=== PATIENT | male | born 1930 | race Caucasian/White ===

== ENCOUNTER 2018-09-21 08:43 | Inpatient (IN) | payer MEDICARE, MEDICAID ==
[~2018-09-21] VITALS: Ht 165.1 cm; Wt 77.6 kg
[2018-09-21] MEDS ORDERED: SODIUM CHLORIDE 0.9% 1,000 ML IV ONE (10:19)
[2018-09-21 12:20] LABS: BASOPHILS % 0.7 % (0.0-2.0); EOSINOPHILS % 0.9 % (0.0-5.0); HEMATOCRIT. 38.4 % (42.0-52.0); HEMOGLOBIN. 12.9 g/dL (14.0-18.0); LYMPHOCYTES % 18.7 % (20.0-50.0); MEAN CORPUSCULAR HEMOGLOBIN 29.9 pg (28.0-32.0); MEAN CORPUSCULAR VOLUME 88.7 fL (80.0-94.0); MEAN PLATELET VOLUME 8.6 fl (7.4-10.4); MONOCYTES % 7.8 % (2.0-8.0); NEUTROPHILS % 71.9 % (40.0-76.0); PLATELET 198 x1000/uL (130-400); RED BLOOD CELL COUNT 4.33 mill/uL (4.7-6.1); RED CELL DISTRIBUTION WIDTH 14.2 % (11.6-14.6)
[2018-09-21 12:25] LABS: CHLORIDE 110 mEq/L (98-107)
[2018-09-21 12:29] LABS: ETHANOL BLOOD < 10 mg/dL; PARTIAL THROMBOPLASTIN TIME 27.8 sec (23.4-31.0); PROTHROMBIN TIME 10.3 sec (9.6-11.0)
[2018-09-21 14:55] LABS: CLARITY URINE CLEAR (CLEAR); COLOR URINE YELLOW (YELLOW); KETONES URINE NEGATIVE (NEGATIVE); LEUKOCYTE ESTERASE URINE NEGATIVE (NEGATIVE); NITRITE URINE NEGATIVE (NEGATIVE); OCCULT BLOOD URINE NEGATIVE (NEGATIVE); PROTEIN URINE NEGATIVE (NEGATIVE); SPECIFIC GRAVITY URINE 1.011 (1.005-1.030); UROBILINOGEN URINE 0.2 E.U./dL (0.2-1.0)
[2018-09-21 15:06] LABS: METHADONE URINE SCREEN NEGATIVE (NEGATIVE); OPIATES URINE SCREEN NEGATIVE (NEGATIVE)
[2018-09-21 15:07] LABS: *AMPHETAMINES SCREEN URINE NEGATIVE (NEGATIVE); *BARBITURATES SCREEN URINE NEGATIVE (NEGATIVE); *BENZODIAZEPINES SCREEN URINE NEGATIVE (NEGATIVE); *COCAINE SCREEN URINE NEGATIVE (NEGATIVE); CANNABINOID URINE SCREEN NEGATIVE (NEGATIVE); PHENCYCLIDINE URINE SCREEN NEGATIVE (NEGATIVE)
[2018-09-21 16:07] VITALS: BP 147/73
[2018-09-21 17:45] VITALS: BP 147/73
[2018-09-21] MEDS ORDERED: SODIUM CHLORIDE 0.9% 1,000 ML IV SCH (19:28)
[2018-09-21] MEDS ORDERED: LORAZEPAM 2MG/ML CPJ IV PRN (19:30)
[2018-09-21] MEDS ORDERED: MAGNESIUM/ALUMINUM HYDROXIDE/SIMETHICONE 30ML UDC PO PRN (19:30)
[2018-09-21] MEDS ORDERED: ONDANSETRON HCL 4MG/2ML INJ IV PRN (19:30)
[2018-09-21] MEDS ORDERED: HYDROCODONE/ACETAMINOPHEN 5/325MG TABLET PO PRN (19:30)
[2018-09-21 20:00] VITALS: BP 167/54
[2018-09-21] MEDS: CLONIDINE 0.1MG TABLET PO PRN (20:23)
[2018-09-21] MEDS: THIAMINE HCL 100MG TABLET PO SCH (20:24)
[2018-09-21] MEDS: ENOXAPARIN 40MG/0.4ML SYR SUBCUT SCH (20:24)
[2018-09-21 23:55] VITALS: BP 100/61
[2018-09-22 00:04] LABS: CREATINE KINASE MB FRACTION 2.3 ng/mL (0.5-3.6)
[2018-09-22 04:00] VITALS: BP_SYST 162; BP_SYST 167; BP_DIAS 78; BP_DIAS 84
[2018-09-22] MEDS: CLONIDINE 0.1MG TABLET PO PRN ×2 (05:12→21:07)
[2018-09-22 06:02] LABS: BASOPHILS % 0.7 % (0.0-2.0); EOSINOPHILS % 1.3 % (0.0-5.0); HEMATOCRIT. 38.3 % (42.0-52.0); HEMOGLOBIN. 13.3 g/dL (14.0-18.0); LYMPHOCYTES % 27.4 % (20.0-50.0); MEAN CORPUSCULAR HEMOGLOBIN 30.3 pg (28.0-32.0); MEAN CORPUSCULAR VOLUME 87.4 fL (80.0-94.0); MEAN PLATELET VOLUME 8.3 fl (7.4-10.4); MONOCYTES % 8.7 % (2.0-8.0); NEUTROPHILS % 61.9 % (40.0-76.0); PLATELET 218 x1000/uL (130-400); RED BLOOD CELL COUNT 4.38 mill/uL (4.7-6.1)
[2018-09-22 06:49] LABS: CHLORIDE 109 mEq/L (98-107)
[2018-09-22 07:15] LABS: PHOSPHORUS 2.6 mg/dL (2.5-4.9)
[2018-09-22 07:17] LABS: CREATINE KINASE 158 IU/L (39-308)
[2018-09-22 07:21] LABS: CREATINE KINASE MB FRACTION 2.7 ng/mL (0.5-3.6)
[2018-09-22 08:00] VITALS: BP 143/81
[2018-09-22] MEDS: THIAMINE HCL 100MG TABLET PO SCH (08:54)
[2018-09-22 12:00] VITALS: BP 160/70
[2018-09-22 16:00] VITALS: BP 150/62
[2018-09-22 18:30] LABS: T4 FREE 1.11 ng/dL (0.76-1.46)
[2018-09-22 18:46] LABS: FOLIC ACID (FOLATE) SERUM 19.9 ng/mL (>5.38)
[2018-09-22 20:00] VITALS: BP 171/75
[2018-09-22] MEDS: AMLODIPINE 5MG TABLET PO SCH (21:07)
[2018-09-22] MEDS: ENOXAPARIN 40MG/0.4ML SYR SUBCUT SCH (21:07)
[2018-09-23] VITALS: BP 138/71
[2018-09-23 04:00] VITALS: BP 144/74
[2018-09-23 08:00] VITALS: BP 137/75
[2018-09-23] MEDS: THIAMINE HCL 100MG TABLET PO SCH (08:10)
[2018-09-23] MEDS: AMLODIPINE 5MG TABLET PO SCH ×2 (08:11→20:29)
[2018-09-23 12:00] VITALS: BP 140/69
[2018-09-23] MEDS ORDERED: CYANOCOBALAMIN 1000MCG/ML VIAL IM SCH (12:00)
[2018-09-23 16:00] VITALS: BP 128/71
[2018-09-23] MEDS: CYANOCOBALAMIN 1000MCG/ML VIAL IM SCH (17:42)
[2018-09-23 20:00] VITALS: BP 150/76
[2018-09-23] MEDS: ENOXAPARIN 40MG/0.4ML SYR SUBCUT SCH (20:16)
[2018-09-24] VITALS (8 sets, daily range): BP systolic 113–149; BP diastolic 61–65
[2018-09-24 06:06] LABS: BASOPHILS % 0.5 % (0.0-2.0); EOSINOPHILS % 2.4 % (0.0-5.0); HEMATOCRIT. 40.9 % (42.0-52.0); HEMOGLOBIN. 14.3 g/dL (14.0-18.0); LYMPHOCYTES % 26.5 % (20.0-50.0); MEAN CORPUSCULAR HEMOGLOBIN 30.4 pg (28.0-32.0); MEAN PLATELET VOLUME 8.3 fl (7.4-10.4); MONOCYTES % 8.7 % (2.0-8.0); NEUTROPHILS % 61.9 % (40.0-76.0); PLATELET 235 x1000/uL (130-400); RED CELL DISTRIBUTION WIDTH 13.8 % (11.6-14.6)
[2018-09-24 06:44] LABS: CHLORIDE 107 mEq/L (98-107)
[2018-09-24] MEDS: THIAMINE HCL 100MG TABLET PO SCH (09:22)
[2018-09-24] MEDS: CYANOCOBALAMIN 1000MCG/ML VIAL IM SCH (09:22)
[2018-09-24] MEDS: AMLODIPINE 5MG TABLET PO SCH ×2 (09:22→20:42)
[2018-09-24] MEDS: ENOXAPARIN 40MG/0.4ML SYR SUBCUT SCH (20:43)
[2018-09-25] MEDS ORDERED: CALCIUM CARBONATE/VITAMIN D3 500MG TABLET PO SCH (09:00)
[2018-09-25] MEDS ORDERED: CALCITONIN,SALMON, 3.7 ML NASAL SPRAY ONENSTRL SCH (09:00)
[2018-09-25] MEDS ORDERED: ZOLP5TAB2 PO (16:32)
[2018-09-25] MEDS ORDERED: TRAM50TA3 PO (16:34)
[2018-09-25] MEDS ORDERED: MECL-109 PO (16:36)
[2018-09-25] MEDS ORDERED: LISI2.5T47 PO (16:37)
[2018-09-25] MEDS ORDERED: HYDR12.529 PO (16:37)
[2018-10-06] MEDS ORDERED: CYANOCOBALAMIN 1000MCG/ML VIAL IM SCH (09:00)
== END 2018-09-24 21:20 | disposition short-term general hospital (02) | DRG 91 ==
LOC: ER 08:43 → 7WST 12:57 → EDBEDREQ 12:58 → ENRESERV 14:24
PROVIDERS: ADMIT Internal Medicine Nephrology; ATTEND Internal Medicine Nephrology
DX: G92 Toxic encephalopathy (principal); G82.50 Quadriplegia, unspecified; R47.01 Aphasia; I11.9 Hypertensive heart disease without heart failure; R47.1 Dysarthria and anarthria; R13.10 Dysphagia, unspecified; R53.81 Other malaise; D64.9 Anemia, unspecified; G89.29 Other chronic pain; M48.02 Spinal stenosis, cervical region; M43.16 Spondylolisthesis, lumbar region; E53.8 Deficiency of other specified B group vitamins; M25.78 Osteophyte, vertebrae; M47.814 Spondylosis without myelopathy or radiculopathy, thoracic region; M48.061 Spinal stenosis, lumbar region without neurogenic claudication; Y93.01 Activity, walking, marching and hiking; R26.9 Unspecified abnormalities of gait and mobility; W18.39XA Other fall on same level, initial encounter; Y92.89 Other specified places as the place of occurrence of the external cause; Y99.8 Other external cause status; Z79.899 Other long term (current) drug therapy; Z87.81 Personal history of (healed) traumatic fracture
CPT/HCPCS: 36415; 70551; 71045; 72141; 72146; 72148; 80048; 80305; 80320; 82140; 82550; 82553; 82607; 82746; 83036; 83735; 83880; 84100; 84153; 84439; 84443; 84481; 84484; 92523; 92610; 93005; 96360; 96361; 97116; 97162; 97166; 97530; 99285; J1650; J2060; J3420; J7030; A4315; G0103; G0480

== ENCOUNTER 2018-09-24 21:13 | Inpatient (IN) | payer MEDICARE, MEDICAID ==
[~2018-09-24] VITALS: Ht 160.1 cm; Wt 77.6 kg
[2018-09-24 20:00] VITALS: BP 110/66
[2018-09-24 21:30] VITALS: BP 110/66
[2018-09-24] MEDS ORDERED: ONDANSETRON HCL 4MG TABLET PO PRN (23:00)
[2018-09-24] MEDS ORDERED: MAGNESIUM/ALUMINUM HYDROXIDE/SIMETHICONE 30ML UDC PO PRN (23:00)
[2018-09-24] MEDS ORDERED: LORAZEPAM 0.5MG TABLET PO PRN (23:00)
[2018-09-24] MEDS ORDERED: CLONIDINE 0.1MG TABLET PO PRN (23:00)
[2018-09-24] MEDS ORDERED: HYDROCODONE/ACETAMINOPHEN 5/325MG TABLET PO PRN (23:00)
[2018-09-24] MEDS ORDERED: ACETAMINOPHEN 325MG TABLET PO PRN (23:00)
[2018-09-25 07:03] LABS: BASOPHILS % 0.5 % (0.0-2.0); EOSINOPHILS % 1.7 % (0.0-5.0); HEMATOCRIT. 41.2 % (42.0-52.0); HEMOGLOBIN. 14.4 g/dL (14.0-18.0); LYMPHOCYTES % 25.8 % (20.0-50.0); MEAN CORPUSCULAR HEMOGLOBIN 30.2 pg (28.0-32.0); MEAN CORPUSCULAR VOLUME 86.8 fL (80.0-94.0); MEAN PLATELET VOLUME 8.3 fl (7.4-10.4); MONOCYTES % 9.2 % (2.0-8.0); NEUTROPHILS % 62.8 % (40.0-76.0); PLATELET 243 x1000/uL (130-400); RED BLOOD CELL COUNT 4.75 mill/uL (4.7-6.1); RED CELL DISTRIBUTION WIDTH 13.7 % (11.6-14.6)
[2018-09-25 07:28] LABS: CHLORIDE 106 mEq/L (98-107)
[2018-09-25 08:10] VITALS: BP 127/68
[2018-09-25] MEDS: CYANOCOBALAMIN 1000MCG/ML VIAL IM SCH (08:58)
[2018-09-25] MEDS: THIAMINE HCL 100MG TABLET PO SCH (08:58)
[2018-09-25] MEDS: CALCIUM CARBONATE/VITAMIN D3 500MG TABLET PO SCH (08:58)
[2018-09-25] MEDS: CALCITONIN,SALMON, 3.7 ML NASAL SPRAY ONENSTRL SCH (08:58)
[2018-09-25] MEDS: AMLODIPINE 5MG TABLET PO SCH ×2 (08:58→20:14)
[2018-09-25] MEDS ORDERED: ZOLP5TAB2 PO (16:32)
[2018-09-25] MEDS ORDERED: TRAM50TA3 PO (16:34)
[2018-09-25] MEDS ORDERED: MECL-109 PO (16:36)
[2018-09-25] MEDS ORDERED: LISI2.5T47 PO (16:37)
[2018-09-25] MEDS ORDERED: HYDR12.529 PO (16:37)
[2018-09-25] MEDS: LACTULOSE 20G/30ML UDC PO SCH ×3 (16:51→23:39)
[2018-09-25 20:00] VITALS: BP 148/70
[2018-09-25] MEDS: ENOXAPARIN 40MG/0.4ML SYR SUBCUT SCH (20:14)
[2018-09-26 07:58] VITALS: BP 164/74
[2018-09-26] MEDS: THIAMINE HCL 100MG TABLET PO SCH (09:27)
[2018-09-26] MEDS: CYANOCOBALAMIN 1000MCG/ML VIAL IM SCH (09:27)
[2018-09-26] MEDS: CALCITONIN,SALMON, 3.7 ML NASAL SPRAY ONENSTRL SCH (09:27)
[2018-09-26] MEDS: CALCIUM CARBONATE/VITAMIN D3 500MG TABLET PO SCH (09:28)
[2018-09-26] MEDS: AMLODIPINE 5MG TABLET PO SCH ×2 (09:28→20:53)
[2018-09-26] MEDS ORDERED: LACTULOSE 20G/30ML UDC PO SCH (10:30)
[2018-09-26] MEDS: DOCUSATE SODIUM 100MG CAPSULE PO SCH (16:11)
[2018-09-26 20:00] VITALS: BP 130/68
[2018-09-26] MEDS: POLYETHYLENE GLYCOL 3350 (17GM) 1 DOSE PACK PO SCH (20:52)
[2018-09-26] MEDS: ENOXAPARIN 40MG/0.4ML SYR SUBCUT SCH (20:53)
[2018-09-27 08:00] VITALS: BP 127/67
[2018-09-27] MEDS: CYANOCOBALAMIN 1000MCG/ML VIAL IM SCH (09:23)
[2018-09-27] MEDS: THIAMINE HCL 100MG TABLET PO SCH (09:23)
[2018-09-27] MEDS: CALCIUM CARBONATE/VITAMIN D3 500MG TABLET PO SCH (09:23)
[2018-09-27] MEDS: AMLODIPINE 5MG TABLET PO SCH ×2 (09:23→21:59)
[2018-09-27] MEDS: DOCUSATE SODIUM 100MG CAPSULE PO SCH ×2 (09:23→16:49)
[2018-09-27] MEDS: CALCITONIN,SALMON, 3.7 ML NASAL SPRAY ONENSTRL SCH (09:34)
[2018-09-27 13:31] LABS: EOSINOPHILS % 1.4 % (0.0-5.0); HEMATOCRIT. 44.8 % (42.0-52.0); HEMOGLOBIN. 15.3 g/dL (14.0-18.0); LYMPHOCYTES % 24.2 % (20.0-50.0); MEAN CORPUSCULAR HEMOGLOBIN 30.1 pg (28.0-32.0); MEAN CORPUSCULAR VOLUME 87.9 fL (80.0-94.0); MEAN PLATELET VOLUME 8.7 fl (7.4-10.4); MONOCYTES % 9.7 % (2.0-8.0); NEUTROPHILS % 63.7 % (40.0-76.0); PLATELET 251 x1000/uL (130-400); RED BLOOD CELL COUNT 5.09 mill/uL (4.7-6.1); RED CELL DISTRIBUTION WIDTH 13.8 % (11.6-14.6)
[2018-09-27 13:32] LABS: CHLORIDE 103 mEq/L (98-107)
[2018-09-27 13:40] LABS: PHOSPHORUS 3.6 mg/dL (2.5-4.9)
[2018-09-27 13:42] LABS: TOTAL IRON BINDING CAPACITY 333 ug/dL (250-450)
[2018-09-27 13:53] LABS: FOLIC ACID (FOLATE) SERUM >20 ng/mL ng/mL (>5.38)
[2018-09-27 20:00] VITALS: BP 138/67
[2018-09-27] MEDS: ENOXAPARIN 40MG/0.4ML SYR SUBCUT SCH (21:59)
[2018-09-27] MEDS: POLYETHYLENE GLYCOL 3350 (17GM) 1 DOSE PACK PO SCH (21:59)
[2018-09-27 22:42] LABS: CLARITY URINE CLOUDY (CLEAR); COLOR URINE YELLOW (YELLOW); KETONES URINE TRACE (NEGATIVE); LEUKOCYTE ESTERASE URINE 1+ (NEGATIVE); NITRITE URINE NEGATIVE (NEGATIVE); OCCULT BLOOD URINE NEGATIVE (NEGATIVE); PH URINE 5.5 (4.5-8.0); PROTEIN URINE NEGATIVE (NEGATIVE); SPECIFIC GRAVITY URINE 1.022 (1.005-1.030)
[2018-09-28 06:46] LABS: BASOPHILS % 0.7 % (0.0-2.0); HEMATOCRIT. 40.3 % (42.0-52.0); HEMOGLOBIN. 13.9 g/dL (14.0-18.0); LYMPHOCYTES % 24.2 % (20.0-50.0); MEAN CORPUSCULAR HEMOGLOBIN 30.3 pg (28.0-32.0); MEAN CORPUSCULAR VOLUME 87.5 fL (80.0-94.0); MEAN PLATELET VOLUME 8.6 fl (7.4-10.4); MONOCYTES % 8.4 % (2.0-8.0); NEUTROPHILS % 63.7 % (40.0-76.0); PLATELET 223 x1000/uL (130-400); RED CELL DISTRIBUTION WIDTH 13.9 % (11.6-14.6)
[2018-09-28 07:34] LABS: CHLORIDE 106 mEq/L (98-107)
[2018-09-28 08:12] VITALS: BP 127/65
[2018-09-28] MEDS: CYANOCOBALAMIN 1000MCG/ML VIAL IM SCH (08:52)
[2018-09-28] MEDS: THIAMINE HCL 100MG TABLET PO SCH (08:52)
[2018-09-28] MEDS: CALCITONIN,SALMON, 3.7 ML NASAL SPRAY ONENSTRL SCH (08:52)
[2018-09-28] MEDS: AMLODIPINE 5MG TABLET PO SCH ×2 (08:52→20:49)
[2018-09-28] MEDS: CALCIUM CARBONATE/VITAMIN D3 500MG TABLET PO SCH (08:53)
[2018-09-28] MEDS: DOCUSATE SODIUM 100MG CAPSULE PO SCH ×2 (08:53→17:18)
[2018-09-28 20:00] VITALS: BP 126/68
[2018-09-28] MEDS: ENOXAPARIN 40MG/0.4ML SYR SUBCUT SCH (20:48)
[2018-09-28] MEDS: POLYETHYLENE GLYCOL 3350 (17GM) 1 DOSE PACK PO SCH (20:48)
[2018-09-29] MEDS ORDERED: NA PHOS,M-B/NA PHOS,DI-BA ENEMA 118ML PR ONE (07:30)
[2018-09-29 08:00] VITALS: BP 119/59
[2018-09-29] MEDS: CALCITONIN,SALMON, 3.7 ML NASAL SPRAY ONENSTRL SCH (09:10)
[2018-09-29] MEDS: THIAMINE HCL 100MG TABLET PO SCH (09:10)
[2018-09-29] MEDS: BISACODYL 5MG TABLET PO PRN (09:10)
[2018-09-29] MEDS: CYANOCOBALAMIN 1000MCG/ML VIAL IM SCH (09:10)
[2018-09-29] MEDS: CALCIUM CARBONATE/VITAMIN D3 500MG TABLET PO SCH (09:10)
[2018-09-29] MEDS: DOCUSATE SODIUM 100MG CAPSULE PO SCH ×2 (09:10→16:11)
[2018-09-29] MEDS: AMLODIPINE 5MG TABLET PO SCH ×2 (09:11→20:59)
[2018-09-29 20:00] VITALS: BP_SYST 104; BP_SYST 186; BP_DIAS 63; BP_DIAS 65
[2018-09-29] MEDS: POLYETHYLENE GLYCOL 3350 (17GM) 1 DOSE PACK PO SCH (20:59)
[2018-09-29] MEDS: ENOXAPARIN 40MG/0.4ML SYR SUBCUT SCH (21:00)
[2018-09-29 22:30] VITALS: BP 104/65
[2018-09-30 08:32] VITALS: BP 128/62
[2018-09-30] MEDS: THIAMINE HCL 100MG TABLET PO SCH (10:18)
[2018-09-30] MEDS: CALCITONIN,SALMON, 3.7 ML NASAL SPRAY ONENSTRL SCH (10:18)
[2018-09-30] MEDS: DOCUSATE SODIUM 100MG CAPSULE PO SCH ×2 (10:18→16:45)
[2018-09-30] MEDS: AMLODIPINE 5MG TABLET PO SCH ×2 (10:19→21:34)
[2018-09-30] MEDS: CALCIUM CARBONATE/VITAMIN D3 500MG TABLET PO SCH (10:19)
[2018-09-30 20:00] VITALS: BP 127/72
[2018-09-30] MEDS: ENOXAPARIN 40MG/0.4ML SYR SUBCUT SCH (21:35)
[2018-09-30] MEDS: POLYETHYLENE GLYCOL 3350 (17GM) 1 DOSE PACK PO SCH (21:38)
[2018-10-01 08:00] VITALS: BP 122/56
[2018-10-01] MEDS: THIAMINE HCL 100MG TABLET PO SCH (09:21)
[2018-10-01] MEDS: AMLODIPINE 5MG TABLET PO SCH ×2 (09:21→20:50)
[2018-10-01] MEDS: CALCIUM CARBONATE/VITAMIN D3 500MG TABLET PO SCH (09:21)
[2018-10-01] MEDS: DOCUSATE SODIUM 100MG CAPSULE PO SCH ×2 (09:21→16:59)
[2018-10-01] MEDS: CALCITONIN,SALMON, 3.7 ML NASAL SPRAY ONENSTRL SCH (09:22)
[2018-10-01] MEDS: SULFAMETHOXAZOLE/TRIMETHOPRIM 800/160MG TABLET PO SCH ×2 (10:58→20:50)
[2018-10-01 20:00] VITALS: BP 125/63
[2018-10-01] MEDS: ENOXAPARIN 40MG/0.4ML SYR SUBCUT SCH (20:51)
[2018-10-01] MEDS: POLYETHYLENE GLYCOL 3350 (17GM) 1 DOSE PACK PO SCH (20:56)
[2018-10-02 07:02] LABS: EOSINOPHILS % 2.5 % (0.0-5.0); HEMATOCRIT. 40.4 % (42.0-52.0); HEMOGLOBIN. 14.1 g/dL (14.0-18.0); LYMPHOCYTES % 24.7 % (20.0-50.0); MEAN CORPUSCULAR HEMOGLOBIN 30.6 pg (28.0-32.0); MEAN CORPUSCULAR VOLUME 87.5 fL (80.0-94.0); MEAN PLATELET VOLUME 8.8 fl (7.4-10.4); MONOCYTES % 9.7 % (2.0-8.0); NEUTROPHILS % 62.1 % (40.0-76.0); PLATELET 222 x1000/uL (130-400); RED BLOOD CELL COUNT 4.62 mill/uL (4.7-6.1); RED CELL DISTRIBUTION WIDTH 13.9 % (11.6-14.6)
[2018-10-02 07:24] LABS: CHLORIDE 109 mEq/L (98-107)
[2018-10-02 07:57] LABS: PHOSPHORUS 3.2 mg/dL (2.5-4.9)
[2018-10-02 08:04] VITALS: BP 142/97
[2018-10-02] MEDS: THIAMINE HCL 100MG TABLET PO SCH (08:48)
[2018-10-02] MEDS: DOCUSATE SODIUM 100MG CAPSULE PO SCH ×2 (08:48→16:44)
[2018-10-02] MEDS: SULFAMETHOXAZOLE/TRIMETHOPRIM 800/160MG TABLET PO SCH ×2 (08:48→20:43)
[2018-10-02] MEDS: CALCITONIN,SALMON, 3.7 ML NASAL SPRAY ONENSTRL SCH (08:48)
[2018-10-02] MEDS: CALCIUM CARBONATE/VITAMIN D3 500MG TABLET PO SCH (08:48)
[2018-10-02] MEDS: AMLODIPINE 5MG TABLET PO SCH ×2 (08:49→20:43)
[2018-10-02 13:15] LABS: 25-HYDROXY VITAMIN D3 25 ng/mL (.)
[2018-10-02 20:00] VITALS: BP 127/55
[2018-10-02] MEDS: POLYETHYLENE GLYCOL 3350 (17GM) 1 DOSE PACK PO SCH (20:43)
[2018-10-02] MEDS: ENOXAPARIN 40MG/0.4ML SYR SUBCUT SCH (20:44)
[2018-10-03 07:53] VITALS: BP 132/70
[2018-10-03] MEDS ORDERED: ERGOCALCIFEROL 50000UNITS CAPSULE PO SCH (09:00)
[2018-10-03] MEDS: CALCIUM CARBONATE/VITAMIN D3 500MG TABLET PO SCH (09:32)
[2018-10-03] MEDS: DOCUSATE SODIUM 100MG CAPSULE PO SCH ×2 (09:32→17:02)
[2018-10-03] MEDS: SULFAMETHOXAZOLE/TRIMETHOPRIM 800/160MG TABLET PO SCH ×2 (09:33→20:19)
[2018-10-03] MEDS: CALCITONIN,SALMON, 3.7 ML NASAL SPRAY ONENSTRL SCH (09:33)
[2018-10-03] MEDS: AMLODIPINE 5MG TABLET PO SCH ×2 (09:33→20:19)
[2018-10-03] MEDS: THIAMINE HCL 100MG TABLET PO SCH (09:33)
[2018-10-03 20:00] VITALS: BP 125/80
[2018-10-03] MEDS: POLYETHYLENE GLYCOL 3350 (17GM) 1 DOSE PACK PO SCH (20:18)
[2018-10-03] MEDS: ENOXAPARIN 40MG/0.4ML SYR SUBCUT SCH (20:19)
[2018-10-03] MEDS: BISACODYL 5MG TABLET PO PRN (20:19)
[2018-10-04 08:00] VITALS: BP 135/73
[2018-10-04] MEDS: CALCITONIN,SALMON, 3.7 ML NASAL SPRAY ONENSTRL SCH (08:47)
[2018-10-04] MEDS: CALCIUM CARBONATE/VITAMIN D3 500MG TABLET PO SCH (08:48)
[2018-10-04] MEDS: AMLODIPINE 5MG TABLET PO SCH ×2 (08:48→21:20)
[2018-10-04] MEDS: DOCUSATE SODIUM 100MG CAPSULE PO SCH ×2 (08:48→16:06)
[2018-10-04] MEDS: THIAMINE HCL 100MG TABLET PO SCH (08:48)
[2018-10-04] MEDS: BISACODYL 5MG TABLET PO PRN (08:48)
[2018-10-04] MEDS: SULFAMETHOXAZOLE/TRIMETHOPRIM 800/160MG TABLET PO SCH ×2 (08:48→21:19)
[2018-10-04 20:00] VITALS: BP 128/63
[2018-10-04] MEDS: POLYETHYLENE GLYCOL 3350 (17GM) 1 DOSE PACK PO SCH (21:19)
[2018-10-04] MEDS: ENOXAPARIN 40MG/0.4ML SYR SUBCUT SCH (21:21)
[2018-10-05 07:20] LABS: BASOPHILS % 2.2 % (0.0-2.0); EOSINOPHILS % 3.2 % (0.0-5.0); HEMATOCRIT. 40.6 % (42.0-52.0); LYMPHOCYTES % 26.6 % (20.0-50.0); MEAN CORPUSCULAR HEMOGLOBIN 30.2 pg (28.0-32.0); MEAN CORPUSCULAR VOLUME 87.5 fL (80.0-94.0); MEAN PLATELET VOLUME 9.3 fl (7.4-10.4); MONOCYTES % 11.7 % (2.0-8.0); NEUTROPHILS % 56.3 % (40.0-76.0); PLATELET 235 x1000/uL (130-400); RED BLOOD CELL COUNT 4.64 mill/uL (4.7-6.1); RED CELL DISTRIBUTION WIDTH 13.9 % (11.6-14.6)
[2018-10-05 08:06] VITALS: BP 115/64
[2018-10-05 08:56] LABS: CHLORIDE 107 mEq/L (98-107)
[2018-10-05] MEDS: CALCIUM CARBONATE/VITAMIN D3 500MG TABLET PO SCH (09:09)
[2018-10-05] MEDS: DOCUSATE SODIUM 100MG CAPSULE PO SCH ×2 (09:09→17:07)
[2018-10-05] MEDS: THIAMINE HCL 100MG TABLET PO SCH (09:09)
[2018-10-05] MEDS: SULFAMETHOXAZOLE/TRIMETHOPRIM 800/160MG TABLET PO SCH ×2 (09:10→20:52)
[2018-10-05] MEDS: AMLODIPINE 5MG TABLET PO SCH ×2 (09:10→20:52)
[2018-10-05] MEDS: CALCITONIN,SALMON, 3.7 ML NASAL SPRAY ONENSTRL SCH (09:10)
[2018-10-05 09:13] LABS: PHOSPHORUS 3.6 mg/dL (2.5-4.9)
[2018-10-05] MEDS ORDERED: POLY17PO3 PO (09:53)
[2018-10-05] MEDS ORDERED: DOCU-138 PO (09:53)
[2018-10-05] MEDS ORDERED: SULF1TAB44 PO (09:53)
[2018-10-05] MEDS ORDERED: CALC3.8S ONENSTRL (09:53)
[2018-10-05] MEDS ORDERED: OCD PO (09:53)
[2018-10-05] MEDS ORDERED: THIA100T72 PO (09:53)
[2018-10-05] MEDS ORDERED: AMLO5TAB88 PO (09:53)
[2018-10-05] MEDS: BISACODYL 5MG TABLET PO PRN (18:13)
[2018-10-05 20:00] VITALS: BP 151/78
[2018-10-05] MEDS: POLYETHYLENE GLYCOL 3350 (17GM) 1 DOSE PACK PO SCH (20:52)
[2018-10-05] MEDS: TAMSULOSIN HCL 0.4MG SR CAPSULE PO SCH (20:52)
[2018-10-05] MEDS: ENOXAPARIN 40MG/0.4ML SYR SUBCUT SCH (20:53)
[2018-10-06 00:20] LABS: CLARITY URINE TURBID (CLEAR); COLOR URINE YELLOW (YELLOW); KETONES URINE 1+ (NEGATIVE); LEUKOCYTE ESTERASE URINE TRACE (NEGATIVE); NITRITE URINE NEGATIVE (NEGATIVE); OCCULT BLOOD URINE NEGATIVE (NEGATIVE); PH URINE 5.5 (4.5-8.0); PROTEIN URINE NEGATIVE (NEGATIVE)
[2018-10-06] MEDS ORDERED: LACTULOSE 20G/30ML UDC PO SCH (05:30)
[2018-10-06 07:12] LABS: EOSINOPHILS % 0.6 % (0.0-5.0); HEMATOCRIT. 43.2 % (42.0-52.0); HEMOGLOBIN. 14.9 g/dL (14.0-18.0); LYMPHOCYTES % 20.4 % (20.0-50.0); MEAN CORPUSCULAR HEMOGLOBIN 30.2 pg (28.0-32.0); MEAN CORPUSCULAR VOLUME 87.4 fL (80.0-94.0); MEAN PLATELET VOLUME 9.5 fl (7.4-10.4); MONOCYTES % 8.9 % (2.0-8.0); NEUTROPHILS % 69.1 % (40.0-76.0); PLATELET 227 x1000/uL (130-400); RED BLOOD CELL COUNT 4.95 mill/uL (4.7-6.1); RED CELL DISTRIBUTION WIDTH 14.3 % (11.6-14.6)
[2018-10-06 07:54] LABS: CHLORIDE 106 mEq/L (98-107)
[2018-10-06 08:05] VITALS: BP 121/78
[2018-10-06] MEDS: DOCUSATE SODIUM 100MG CAPSULE PO SCH ×2 (08:28→17:23)
[2018-10-06] MEDS: THIAMINE HCL 100MG TABLET PO SCH (08:28)
[2018-10-06] MEDS: CALCIUM CARBONATE/VITAMIN D3 500MG TABLET PO SCH (08:29)
[2018-10-06] MEDS: CALCITONIN,SALMON, 3.7 ML NASAL SPRAY ONENSTRL SCH (08:29)
[2018-10-06] MEDS: SULFAMETHOXAZOLE/TRIMETHOPRIM 800/160MG TABLET PO SCH ×2 (08:29→20:43)
[2018-10-06] MEDS: AMLODIPINE 5MG TABLET PO SCH ×2 (08:29→20:44)
[2018-10-06] MEDS ORDERED: CYANOCOBALAMIN 1000MCG/ML VIAL IM SCH (09:00)
[2018-10-06] MEDS: BISACODYL 5MG TABLET PO PRN (17:23)
[2018-10-06 20:00] VITALS: BP 143/77
[2018-10-06] MEDS: ENOXAPARIN 40MG/0.4ML SYR SUBCUT SCH (20:43)
[2018-10-06] MEDS: POLYETHYLENE GLYCOL 3350 (17GM) 1 DOSE PACK PO SCH (20:43)
[2018-10-06] MEDS: TAMSULOSIN HCL 0.4MG SR CAPSULE PO SCH (20:43)
[2018-10-07] MEDS ORDERED: NA PHOS,M-B/NA PHOS,DI-BA ENEMA 118ML PR ONE (02:45)
[2018-10-07 07:27] LABS: CHLORIDE 105 mEq/L (98-107)
[2018-10-07 08:00] VITALS: BP 120/58
[2018-10-07] MEDS: SULFAMETHOXAZOLE/TRIMETHOPRIM 800/160MG TABLET PO SCH ×2 (09:44→20:41)
[2018-10-07] MEDS: THIAMINE HCL 100MG TABLET PO SCH (09:44)
[2018-10-07] MEDS: CALCIUM CARBONATE/VITAMIN D3 500MG TABLET PO SCH (09:45)
[2018-10-07] MEDS: AMLODIPINE 5MG TABLET PO SCH ×2 (09:45→20:42)
[2018-10-07] MEDS: DOCUSATE SODIUM 100MG CAPSULE PO SCH ×2 (09:45→17:00)
[2018-10-07] MEDS: CALCITONIN,SALMON, 3.7 ML NASAL SPRAY ONENSTRL SCH (09:45)
[2018-10-07 20:00] VITALS: BP 119/69
[2018-10-07] MEDS: ENOXAPARIN 40MG/0.4ML SYR SUBCUT SCH (20:42)
[2018-10-07] MEDS: POLYETHYLENE GLYCOL 3350 (17GM) 1 DOSE PACK PO SCH (20:42)
[2018-10-07] MEDS: TAMSULOSIN HCL 0.4MG SR CAPSULE PO SCH (22:30)
[2018-10-08 08:08] VITALS: BP 120/69
[2018-10-08] MEDS: DOCUSATE SODIUM 100MG CAPSULE PO SCH (09:23)
[2018-10-08] MEDS: CALCIUM CARBONATE/VITAMIN D3 500MG TABLET PO SCH (09:23)
[2018-10-08] MEDS: THIAMINE HCL 100MG TABLET PO SCH (09:23)
[2018-10-08] MEDS: SULFAMETHOXAZOLE/TRIMETHOPRIM 800/160MG TABLET PO SCH (09:23)
[2018-10-08] MEDS: AMLODIPINE 5MG TABLET PO SCH (09:23)
[2018-10-08] MEDS: CALCITONIN,SALMON, 3.7 ML NASAL SPRAY ONENSTRL SCH (09:24)
[2018-10-08 11:20] VITALS: BP 120/69
== END 2018-10-08 12:50 | disposition home health service (06) | DRG 91 ==
PROVIDERS: ADMIT Physical Medicine & Rehabilitation Spinal Cord Injury Medicine; ATTEND Internal Medicine Nephrology
DX: G92 Toxic encephalopathy (principal); G82.50 Quadriplegia, unspecified; S32.019A Unspecified fracture of first lumbar vertebra, initial encounter for closed fracture; R47.01 Aphasia; E46 Unspecified protein-calorie malnutrition; N39.0 Urinary tract infection, site not specified; M48.061 Spinal stenosis, lumbar region without neurogenic claudication; M48.02 Spinal stenosis, cervical region; R13.10 Dysphagia, unspecified; D64.9 Anemia, unspecified; E53.8 Deficiency of other specified B group vitamins; R47.1 Dysarthria and anarthria; N40.1 Benign prostatic hyperplasia with lower urinary tract symptoms; R33.8 Other retention of urine; R53.81 Other malaise; I10 Essential (primary) hypertension; E55.9 Vitamin D deficiency, unspecified; F39 Unspecified mood [affective] disorder; N40.0 Benign prostatic hyperplasia without lower urinary tract symptoms; Z79.899 Other long term (current) drug therapy; W18.39XA Other fall on same level, initial encounter; Z68.30 Body mass index [BMI] 30.0-30.9, adult
CPT/HCPCS: 36415; 80048; 82306; 82746; 83540; 83550; 83735; 84100; 84134; 92523; 92610; 93970; 97110; 97116; 97162; 97166; 97530; 97535; A6261; J1650; J3420; A4315

== ENCOUNTER 2020-02-03 12:04 | Emergency (ER) | payer MEDICARE, MEDICAID ==
[~2020-02-03] VITALS: Ht 157.5 cm; Wt 62.0 kg
[~2020-02-03 12:04] MED LIST: AMLO5TAB88 PO; CALC3.8S ONENSTRL; DOCU-138 PO; OCD PO; POLY17PO3 PO; SULF1TAB44 PO; THIA100T72 PO
[2020-02-03 12:44] VITALS: BP 130/66
[2020-02-03] MEDS ORDERED: MIDAZOLAM HCL 2 MG/2 ML VIAL ONE (13:48)
[2020-02-03] MEDS ORDERED: LIDOCAINE HCL 1% 20ML VIAL (Pyxis) INJ ONE (13:49)
[2020-02-03] MEDS ORDERED: FENTANYL CITRATE/PF 50MCG/ML 2ML VIAL ONE (13:49)
[2020-02-03] MEDS ORDERED: IODIXANOL 320MG/ML 100 ML BOTTLE IV ONE (13:50)
[2020-02-03] MEDS ORDERED: ACETAMINOPHEN 325MG TABLET PO ONE (16:15)
[2020-02-03 17:07] LABS: BASOPHILS % 0.6 % (0.0-2.0); EOSINOPHILS % 1.3 % (0.0-5.0); HEMATOCRIT. 41.8 % (42.0-52.0); LYMPHOCYTES % 16.8 % (20.0-50.0); MEAN CORPUSCULAR HEMOGLOBIN 30.4 pg (28.0-32.0); MEAN CORPUSCULAR VOLUME 90.4 fL (80.0-94.0); MONOCYTES % 7.6 % (2.0-8.0); NEUTROPHILS % 73.7 % (40.0-76.0); PLATELET 198 x1000/uL (130-400); RED BLOOD CELL COUNT 4.62 mill/uL (4.7-6.1); RED CELL DISTRIBUTION WIDTH 13.9 % (11.6-14.6)
[2020-02-03 17:14] LABS: CHLORIDE 108 mEq/L (98-107)
[2020-02-03 18:13] LABS: CLARITY URINE CLOUDY (CLEAR); COLOR URINE YELLOW (YELLOW); KETONES URINE 1+ (NEGATIVE); LEUKOCYTE ESTERASE URINE 3+ (NEGATIVE); NITRITE URINE POSITIVE (NEGATIVE); OCCULT BLOOD URINE 3+ (NEGATIVE); PH URINE 6.5 (4.5-8.0); PROTEIN URINE 1+ (NEGATIVE); SPECIFIC GRAVITY URINE 1.024 (1.005-1.030)
== END 2020-02-03 18:48 | disposition home or self-care (01) ==
LOC: ER 12:04
DX: N39.0 Urinary tract infection, site not specified (principal); G93.89 Other specified disorders of brain
CPT/HCPCS: 36415; 70450; 71045; 72170; 73070; 80048; 81003; 85025; 87077; 87086; 87186; 99285; J1644; J2250; J3010; J3490; Q9967